=== PATIENT | female | born 1940 | race Asian ===

== ENCOUNTER 2016-08-18 12:27 | Emergency (ER) | payer OTHER ==
[~2016-08-18] VITALS: Ht 160 cm; Wt 80.9 kg
[~2016-08-18 12:27] MED LIST: AMLO-511 PO; ATOR10TA84 PO; LOSARTAN PO; METF500T4 PO; PRAV40 PO
[2016-08-18] MEDS ORDERED: HYDR25TA PO (12:49)
[2016-08-18] MEDS ORDERED: LEVO88TA4 PO (12:49)
[2016-08-18] MEDS ORDERED: LOSA50TA37 PO (14:10)
[2016-08-18] MEDS ORDERED: PRAV20TA4 PO (14:10)
[2016-08-18] MEDS ORDERED: ONDANSETRON HCL 4 MG/2 ML VIAL IVP ONE (14:15)
[2016-08-18] MEDS ORDERED: SODIUM CHLORIDE 0.9% 1,000 ML IV ONE (14:15)
[2016-08-18 14:39] LABS: BASOPHILS % (AUTO) 0.2 % (0.0-2.0); EOSINOPHILS % (AUTO) 0.8 % (1.0-6.0); HEMATOCRIT 43.7 % (36-46); HEMOGLOBIN 14.6 g/dL (12.0-16.0); LYMPHOCYTES # (AUTO) 1.5 K/uL (1.0-4.8); LYMPHOCYTES % (AUTO) 23.2 % (22.0-44.0); MEAN CORPUSCULAR HEMOGLOBIN 30.6 pg (26.0-34.0); MEAN CORPUSCULAR HGB CONC 33.4 G/dL (31.0-37.0); MEAN CORPUSCULAR VOLUME 92 fL (80-100); MONOCYTES # (AUTO) 0.4 K/uL (0.1-1.0); MONOCYTES % (AUTO) 6.7 % (2.0-9.0); NEUTROPHILS # (AUTO) 4.5 K/uL (1.8-7.7); NEUTROPHILS % (AUTO) 69.1 % (40.0-70.0); PLATELET COUNT (AUTO) 217 K/uL (150-450); RED BLOOD CELL COUNT(AUTO) 4.78 MIL/uL (4.00-5.20); RED CELL DISTRIBUTION WIDTH 12.6 % (11.5-14.5); WHITE BLOOD COUNT (AUTO) 6.5 K/uL (4.5-11.0)
[2016-08-18 14:50] LABS: ANION GAP 12 mmol/L (8-16); CALCIUM, TOTAL 9.4 mg/dL (8.8-10.5); CARBON DIOXIDE 27 mmol/L (22-29); CHLORIDE 98 mmol/L (98-107); GLOMERULAR FILTR. RATE CALC 54 mL/min (>60); SODIUM SERUM 137 mmol/L (136-145); UREA NITROGEN, BLOOD 15 mg/dL (7-18)
[2016-08-18 15:15] LABS: ALANINE AMINOTRANSFERASE 33 U/L (12-78); ALBUMIN 4.2 g/dL (3.4-5.0); ASPARTATE AMINOTRANSFERASE 25 U/L (15-37); BILIRUBIN,TOTAL 0.7 mg/dL (0.1-1.0); CREATINE KINASE, TOTAL 79 U/L (26-192)
[2016-08-18 15:23] LABS: CREATINE KINASE MB < 0.5 ng/mL (0-5)
[2016-08-18 15:32] LABS: B-TYPE NATRIURETIC PEPTIDE 17 pg/mL (0-100)
[2016-08-18 16:02] LABS: ADD UA MICROSCOPIC YES; APPEARANCE,URINE CLEAR (CLEAR); GLUCOSE, URINE (UA) NEGATIVE (NEGATIVE); KETONES,URINE NEGATIVE (NEGATIVE); LEUKOCYTE ESTERASE ,URINE NEGATIVE (NEGATIVE); OCCULT BLOOD,URINE MODERATE (NEGATIVE); PROTEIN,URINE NEGATIVE (NEGATIVE)
[2016-08-18 16:20] LABS: SQUAMOUS EPITHELIAL CELL,UR Few /LPF (None Seen); TRANSITIONAL EPI CELLS,URINE Few /LPF (None Seen)
[2016-08-18 16:21] LABS: WBC,URINE 0-2 /HPF (0-5)
[2016-08-18 17:00] VITALS: BP 145/83
== END 2016-08-18 17:24 | disposition home or self-care (01) ==
LOC: EMS 12:28
DX: R11.2 Nausea with vomiting, unspecified (principal); I10 Essential (primary) hypertension; R42 Dizziness and giddiness; E11.9 Type 2 diabetes mellitus without complications; E78.00 Pure hypercholesterolemia, unspecified
CPT/HCPCS: 36415; 71010; 80053; 81001; 82550; 82553; 83690; 83880; 84484; 85025; 93005; 96361; 96374; 99285; J2405; J7030

== ENCOUNTER 2017-01-18 18:51 | Emergency (ER) | payer OTHER ==
[~2017-01-18] VITALS: Ht 160 cm; Wt 72.7 kg
[~2017-01-18 18:51] MED LIST changes: -ATOR10TA84 PO; +HYDR25TA PO; +LEVO88TA4 PO; +LOSA50TA37 PO; -LOSARTAN PO; +PRAV20TA4 PO; -PRAV40 PO
[2017-01-18 19:07] LABS: GLUCOSE,POINT OF CARE 148 MG/DL (70-110)
[2017-01-18] MEDS ORDERED: KETOROLAC TROMETHAMINE 30 MG/ML VIAL IM ONE (19:30)
[2017-01-18] MEDS ORDERED: METHOCARBAMOL 500 MG TABLET PO ONE (19:30)
[2017-01-18 19:32] VITALS: BP 132/85
== END 2017-01-18 20:38 | disposition home or self-care (01) ==
LOC: EMS 18:52
DX: S39.012A Strain of muscle, fascia and tendon of lower back, initial encounter (principal); E11.9 Type 2 diabetes mellitus without complications; E78.00 Pure hypercholesterolemia, unspecified; I10 Essential (primary) hypertension; I70.0 Atherosclerosis of aorta; X50.1XXA Overexertion from prolonged static or awkward postures, initial encounter; Y93.89 Activity, other specified; Y92.89 Other specified places as the place of occurrence of the external cause; Y99.8 Other external cause status
CPT/HCPCS: 71010; 72100; 82962; 96372; 99284; J1885

== ENCOUNTER 2017-02-22 23:59 | Emergency (ER) | payer OTHER ==
[~2017-02-22] VITALS: Ht 157.5 cm; Wt 63.6 kg
[~2017-02-22 23:59] MED LIST changes: -AMLO-511 PO
[2017-02-23] MEDS ORDERED: HYDR25TA PO (00:07)
[2017-02-23] MEDS ORDERED: METO25 PO (00:07)
[2017-02-23 00:13] LABS: GLUCOSE,POINT OF CARE 126 MG/DL (70-110)
[2017-02-23 01:02] LABS: BASOPHILS % (AUTO) 0.3 % (0.0-2.0); EOSINOPHILS % (AUTO) 1.8 % (1.0-6.0); HEMATOCRIT 37.8 % (36-46); HEMOGLOBIN 12.9 g/dL (12.0-16.0); LYMPHOCYTES # (AUTO) 2.4 K/uL (1.0-4.8); LYMPHOCYTES % (AUTO) 35.5 % (22.0-44.0); MEAN CORPUSCULAR HEMOGLOBIN 31.4 pg (26.0-34.0); MEAN CORPUSCULAR HGB CONC 34.2 G/dL (31.0-37.0); MEAN CORPUSCULAR VOLUME 92 fL (80-100); MONOCYTES # (AUTO) 0.6 K/uL (0.1-1.0); MONOCYTES % (AUTO) 8.4 % (2.0-9.0); NEUTROPHILS # (AUTO) 3.6 K/uL (1.8-7.7); PLATELET COUNT (AUTO) 196 K/uL (150-450); RED BLOOD CELL COUNT(AUTO) 4.12 MIL/uL (4.00-5.20); RED CELL DISTRIBUTION WIDTH 12.7 % (11.5-14.5); WHITE BLOOD COUNT (AUTO) 6.7 K/uL (4.5-11.0)
[2017-02-23 01:13] LABS: CALCIUM, TOTAL 9.3 mg/dL (8.8-10.5); CREATININE 1.25 mg/dL (0.60-1.30); POTASSIUM 4.2 mmol/L (3.5-5.1)
[2017-02-23 01:15] VITALS: BP 124/71
[2017-02-23 01:21] LABS: ALBUMIN 3.7 g/dL (3.4-5.0); BILIRUBIN,TOTAL 0.4 mg/dL (0.1-1.0); TOTAL PROTEIN, SERUM 7.4 g/dL (6.4-8.2)
== END 2017-02-23 01:57 | disposition home or self-care (01) ==
LOC: EMS 02-23 00:01
DX: R00.2 Palpitations (principal); F41.9 Anxiety disorder, unspecified; R20.0 Anesthesia of skin; R07.9 Chest pain, unspecified; E11.9 Type 2 diabetes mellitus without complications; E78.00 Pure hypercholesterolemia, unspecified; I10 Essential (primary) hypertension
CPT/HCPCS: 82962; 93005; 99285

== ENCOUNTER 2017-11-24 19:06 | Emergency (ER) | payer MEDICARE, OTHER ==
[~2017-11-24] VITALS: Ht 160 cm; Wt 81.8 kg
[~2017-11-24 19:06] MED LIST changes: +LOSA50TA25 PO; -LOSA50TA37 PO; +METF-444 PO; -METF500T4 PO; +METO25 PO
[2017-11-24 19:19] LABS: GLUCOSE,POINT OF CARE 149 MG/DL (70-110)
[2017-11-24] MEDS ORDERED: TraMADol HCL 50 MG TABLET PO ONE (20:45)
[2017-11-24 22:16] VITALS: BP 135/85
== END 2017-11-24 22:19 | disposition home or self-care (01) ==
LOC: EMS 19:08
DX: S46.811A Strain of other muscles, fascia and tendons at shoulder and upper arm level, right arm, initial encounter (principal); S13.4XXA Sprain of ligaments of cervical spine, initial encounter; E11.9 Type 2 diabetes mellitus without complications; E78.00 Pure hypercholesterolemia, unspecified; I10 Essential (primary) hypertension; X58.XXXA Exposure to other specified factors, initial encounter; Y93.89 Activity, other specified; Y92.89 Other specified places as the place of occurrence of the external cause; Y99.8 Other external cause status
CPT/HCPCS: 72070; 99284

== ENCOUNTER 2018-03-15 09:49 | Emergency (ER) | payer MEDICARE, OTHER ==
[~2018-03-15] VITALS: Ht 157.5 cm; Wt 77.0 kg
[~2018-03-15 09:49] MED LIST changes: -LOSA50TA25 PO; +LOSA50TA64 PO
[2018-03-15 10:05] LABS: GLUCOSE,POINT OF CARE 148 MG/DL (70-110)
[2018-03-15] MEDS ORDERED: ALEN70TA10 PO (11:13)
[2018-03-15] MEDS ORDERED: ASPI-556 PO (11:13)
[2018-03-15 11:57] LABS: BASOPHILS % (AUTO) 0.9 % (0.0-2.0); EOSINOPHILS % (AUTO) 1.1 % (1.0-6.0); HEMATOCRIT 42.1 % (36-46); HEMOGLOBIN 14.5 g/dL (12.0-16.0); LYMPHOCYTES # (AUTO) 1.3 K/uL (1.0-4.8); LYMPHOCYTES % (AUTO) 25.1 % (22.0-44.0); MEAN CORPUSCULAR HEMOGLOBIN 31.6 pg (26.0-34.0); MEAN CORPUSCULAR HGB CONC 34.5 G/dL (31.0-37.0); MEAN CORPUSCULAR VOLUME 92 fL (80-100); MONOCYTES # (AUTO) 0.4 K/uL (0.1-1.0); MONOCYTES % (AUTO) 7.7 % (2.0-9.0); NEUTROPHILS # (AUTO) 3.4 K/uL (1.8-7.7); NEUTROPHILS % (AUTO) 65.2 % (40.0-70.0); PLATELET COUNT (AUTO) 221 K/uL (150-450); RED CELL DISTRIBUTION WIDTH 12.9 % (11.5-14.5)
[2018-03-15] MEDS ORDERED: ONDANSETRON HCL 4 MG/2 ML VIAL IVP ONE (12:00)
[2018-03-15] MEDS ORDERED: SODIUM CHLORIDE 0.9% 1,000 ML IV ONE (12:00)
[2018-03-15] MEDS ORDERED: PANTOPRAZOLE SODIUM 40 MG/VIAL IVP ONE (12:00)
[2018-03-15 12:08] LABS: PROTHROMBIN TIME 10.3 SEC (9.4-11.6)
[2018-03-15 12:10] LABS: CALCIUM, TOTAL 9.6 mg/dL (8.8-10.5); CREATININE 1.15 mg/dL (0.60-1.30); POTASSIUM 3.2 mmol/L (3.5-5.1)
[2018-03-15 12:33] LABS: APPEARANCE,URINE CLEAR (CLEAR); BILIRUBIN,URINE NEGATIVE (NEGATIVE); GLUCOSE, URINE (UA) NEGATIVE (NEGATIVE); KETONES,URINE NEGATIVE (NEGATIVE); LEUKOCYTE ESTERASE ,URINE NEGATIVE (NEGATIVE); NITRATE,URINE NEGATIVE (NEGATIVE); OCCULT BLOOD,URINE SMALL (NEGATIVE); PROTEIN,URINE NEGATIVE (NEGATIVE); UROBILINOGEN,URINE 0.2 mg/dL (<=1.0)
[2018-03-15 12:42] LABS: ALBUMIN 3.7 g/dL (3.4-5.0); BILIRUBIN,TOTAL 0.7 mg/dL (0.1-1.0); TOTAL PROTEIN, SERUM 7.7 g/dL (6.4-8.2)
[2018-03-15] MEDS ORDERED: POTASSIUM CHLORIDE 20 MEQ ER TABLET PO ONE (13:30)
[2018-03-15] MEDS ORDERED: IOVERSOL 350 MG/ML 100 ML VIAL ONE (13:47)
[2018-03-15 15:17] LABS: BACTERIA,URINE None Seen /HPF (None Seen); RBC,URINE 0-2 /HPF (0-2); WBC,URINE 0-2 /HPF (0-5)
[2018-03-15 15:18] LABS: SQUAMOUS EPITHELIAL CELL,UR Few /LPF (None Seen)
[2018-03-15 15:20] VITALS: BP 142/84
== END 2018-03-15 15:37 | disposition home or self-care (01) ==
LOC: EMS 09:50
DX: K59.00 Constipation, unspecified (principal); R11.2 Nausea with vomiting, unspecified; E87.6 Hypokalemia; R42 Dizziness and giddiness; E11.9 Type 2 diabetes mellitus without complications; E78.00 Pure hypercholesterolemia, unspecified; I10 Essential (primary) hypertension; Z79.82 Long term (current) use of aspirin
CPT/HCPCS: 36415; 71045; 74176; 80053; 81001; 81003; 82550; 82962; 83690; 83880; 84484; 85025; 85610; 85730; 93005; 96361; 96374; 96375; 99285; C9113; J2405; J7030

== ENCOUNTER 2019-04-24 15:56 | Inpatient (IN) | payer MEDICARE, OTHER ==
[~2019-04-24] VITALS: Ht 154.9 cm; Wt 77.0 kg
[~2019-04-24 15:56] MED LIST changes: +ALEN70TA10 PO; +ASPI-556 PO; +HYDR-1475 PO; -HYDR25TA PO; +LOSA-88 PO; -LOSA50TA64 PO
[2019-04-24] MEDS ORDERED: FURO20 PO (16:32)
[2019-04-24] MEDS ORDERED: GUAI100S42 PO (16:32)
[2019-04-24] MEDS ORDERED: ACET-66 PO (16:32)
[2019-04-24] MEDS ORDERED: AMLO5TAB9 PO (16:32)
[2019-04-24] MEDS ORDERED: FLUT16H NASAL (16:32)
[2019-04-24] MEDS ORDERED: ALBU8HFA IH (16:32)
[2019-04-24] MEDS ORDERED: LORA10TA7 PO (16:32)
[2019-04-24] MEDS ORDERED: LOSA-88 PO (16:32)
[2019-04-24] MEDS ORDERED: APIX5TAB PO (16:32)
[2019-04-24] MEDS ORDERED: GABA-529 PO (16:32)
[2019-04-24] MEDS ORDERED: PRED20 PO (16:32)
[2019-04-24 16:34] LABS: GLUCOSE,POINT OF CARE 154 MG/DL (70-110)
[2019-04-24 16:45] LABS: BASOPHILS % (AUTO) 0.7 % (0.0-2.0); EOSINOPHILS % (AUTO) 1.3 % (1.0-6.0); HEMATOCRIT 41.5 % (36-46); HEMOGLOBIN 13.9 g/dL (12.0-16.0); LYMPHOCYTES # (AUTO) 1.3 K/uL (1.0-4.8); LYMPHOCYTES % (AUTO) 34.3 % (22.0-44.0); MEAN CORPUSCULAR HEMOGLOBIN 30.8 pg (26.0-34.0); MEAN CORPUSCULAR HGB CONC 33.5 G/dL (31.0-37.0); MEAN CORPUSCULAR VOLUME 92 fL (80-100); MONOCYTES # (AUTO) 0.6 K/uL (0.1-1.0); MONOCYTES % (AUTO) 17.1 % (2.0-9.0); NEUTROPHILS # (AUTO) 1.7 K/uL (1.8-7.7); NEUTROPHILS % (AUTO) 46.6 % (40.0-70.0); PLATELET COUNT (AUTO) 196 K/uL (150-450); RED CELL DISTRIBUTION WIDTH 13.3 % (11.5-14.5)
[2019-04-24 17:03] LABS: PROTHROMBIN TIME 10.1 SEC (9.4-11.6)
[2019-04-24 17:28] LABS: CALCIUM, TOTAL 8.9 mg/dL (8.8-10.5); CREATININE 1.07 mg/dL (0.60-1.30); POTASSIUM 3.2 mmol/L (3.5-5.1)
[2019-04-24 17:33] LABS: ALBUMIN 3.8 g/dL (3.4-5.0); BILIRUBIN,TOTAL 0.2 mg/dL (0.1-1.0); TOTAL PROTEIN, SERUM 7.8 g/dL (6.4-8.2)
[2019-04-24 17:35] LABS: LACTIC ACID 1.6 mmol/L (0.4-2.0)
[2019-04-24] MEDS ORDERED: GuaiFENesin/D-METHORPHAN [SUGAR-FREE] 200-20MG/10 ML SYRUP UDCUP PO ONE (18:00)
[2019-04-24] MEDS ORDERED: ONDANSETRON HCL 4 MG/2 ML VIAL IVP PRN ×2 (18:00→20:30)
[2019-04-24] MEDS ORDERED: 0.9% SODIUM CHLORIDE 10 ML SYRINGE IVP PRN ×2 (18:00→20:30)
[2019-04-24] MEDS ORDERED: IPRATROPIUM BROMIDE 0.5 MG/2.5 ML NEB SOLUTION NEB PRN ×2 (18:00→20:30)
[2019-04-24] MEDS ORDERED: ALBUTEROL SULFATE 2.5 MG/0.5 ML NEB SOLUTION NEB PRN ×2 (18:00→20:30)
[2019-04-24] MEDS ORDERED: POTASSIUM CHLORIDE 10% 40 MEQ/30 ML LIQUID UDCUP PO ONE (18:00)
[2019-04-24] MEDS ORDERED: ACETAMINOPHEN 325 MG TABLET PO PRN ×2 (18:00→20:30)
[2019-04-24 19:12] LABS: INFLUENZA TYPE A NEGATIVE FOR TYPE A (NEGATIVE); INFLUENZA TYPE B NEGATIVE FOR TYPE B (NEGATIVE)
[2019-04-24] MEDS ORDERED: MAGNESIUM SULFATE 4 GM/WATER 100 ML IV PRN (20:30)
[2019-04-24] MEDS ORDERED: POTASSIUM CHLORIDE 20 MEQ ER TABLET PO PRN (20:30)
[2019-04-24] MEDS ORDERED: ALBUTEROL SULFATE HFA 90 MCG/PUFF 8 GM INHALER IH PRN (20:30)
[2019-04-24] MEDS ORDERED: ZOLPIDEM TARTRATE 5 MG TABLET PO PRN (20:30)
[2019-04-24] MEDS ORDERED: MAGNESIUM OXIDE 400 MG TABLET PO PRN (20:30)
[2019-04-24] MEDS ORDERED: POTASSIUM CHL 10 MEQ/WATER 50 ML IV PRN (20:30)
[2019-04-24] MEDS ORDERED: MAGNESIUM SULFATE 2 GM/WATER 50 ML IV PRN (20:30)
[2019-04-24] MEDS: GABAPENTIN 100 MG CAPSULE PO SCH (21:00)
[2019-04-24 21:02] VITALS: BP 147/72
[2019-04-24] MEDS: PRAVASTATIN SODIUM 20 MG TABLET PO SCH (22:52)
[2019-04-24] MEDS: APIXABAN 5 MG TABLET PO SCH (22:52)
[2019-04-24 23:42] VITALS: BP 126/79
[2019-04-25] MEDS: ALBUTEROL SULFATE 2.5 MG/0.5 ML NEB SOLUTION NEB SCH ×4 (02:00→19:14)
[2019-04-25] MEDS: IPRATROPIUM BROMIDE 0.5 MG/2.5 ML NEB SOLUTION NEB SCH ×4 (02:00→19:14)
[2019-04-25] MEDS ORDERED: PNEUMOCOCCAL VACCINE POLYVALENT 0.5 ML VIAL [PPSV23] IM ONE (03:30)
[2019-04-25 05:01] VITALS: BP 123/73
[2019-04-25] MEDS: LEVOTHYROXINE SODIUM 88 MCG TABLET PO SCH (06:01)
[2019-04-25 06:19] LABS: BASOPHILS % (AUTO) 0.3 % (0.0-2.0); EOSINOPHILS % (AUTO) 0.4 % (1.0-6.0); HEMOGLOBIN 12.3 g/dL (12.0-16.0); LYMPHOCYTES # (AUTO) 1.1 K/uL (1.0-4.8); LYMPHOCYTES % (AUTO) 35.4 % (22.0-44.0); MEAN CORPUSCULAR HEMOGLOBIN 31.5 pg (26.0-34.0); MEAN CORPUSCULAR HGB CONC 34.2 G/dL (31.0-37.0); MEAN CORPUSCULAR VOLUME 92 fL (80-100); MONOCYTES # (AUTO) 0.4 K/uL (0.1-1.0); MONOCYTES % (AUTO) 11.4 % (2.0-9.0); NEUTROPHILS # (AUTO) 1.7 K/uL (1.8-7.7); NEUTROPHILS % (AUTO) 52.5 % (40.0-70.0); PLATELET COUNT (AUTO) 182 K/uL (150-450); RED BLOOD CELL COUNT(AUTO) 3.91 MIL/uL (4.00-5.20); RED CELL DISTRIBUTION WIDTH 13.2 % (11.5-14.5)
[2019-04-25 06:23] LABS: HEMOGLOBIN A1C 6.4 % (4.5-6.2)
[2019-04-25 06:55] LABS: ANION GAP 10 mmol/L (8-16); CALCIUM, TOTAL 8.8 mg/dL (8.8-10.5); CARBON DIOXIDE 26 mmol/L (22-29); CHLORIDE 106 mmol/L (98-107); CREATININE 0.85 mg/dL (0.60-1.30); GLUCOSE,RANDOM 139 mg/dL (70-110); POTASSIUM 3.5 mmol/L (3.5-5.1); SODIUM SERUM 142 mmol/L (136-145); THYROID STIMULATING HORMONE 0.32 uIU/mL (0.36-3.74); UREA NITROGEN, BLOOD 11 mg/dL (7-18)
[2019-04-25 06:58] LABS: GLOMERULAR FILTR. RATE CALC > 60 mL/min (>60)
[2019-04-25 07:24] VITALS: BP 131/80
[2019-04-25] MEDS: GABAPENTIN 100 MG CAPSULE PO SCH ×2 (08:13→20:14)
[2019-04-25] MEDS: LOSARTAN POTASSIUM 50 MG TABLET PO SCH (08:13)
[2019-04-25] MEDS: AmLODIPine BESYLATE 5 MG TABLET PO SCH (08:14)
[2019-04-25] MEDS: FUROSEMIDE 20 MG TABLET PO SCH (08:14)
[2019-04-25] MEDS: PANTOPRAZOLE SODIUM 40 MG DR TABLET PO SCH (08:14)
[2019-04-25] MEDS: APIXABAN 5 MG TABLET PO SCH ×2 (08:16→20:14)
[2019-04-25] MEDS: FLUTICASONE PROPIONATE 50 MCG/SPRAY 16 GM NASAL SPRAY NASAL SCH (08:16)
[2019-04-25] MEDS: LORATADINE 10 MG TABLET PO SCH (08:17)
[2019-04-25 11:04] VITALS: BP 138/75
[2019-04-25 15:18] VITALS: BP 138/77
[2019-04-25] MEDS: PRAVASTATIN SODIUM 20 MG TABLET PO SCH (20:14)
[2019-04-25 20:26] VITALS: BP 109/60
[2019-04-25 23:44] VITALS: BP 116/72
[2019-04-26] MEDS ORDERED: BENZONATATE 100 MG CAPSULE PO PRN
[2019-04-26] MEDS: IPRATROPIUM BROMIDE 0.5 MG/2.5 ML NEB SOLUTION NEB SCH ×4 (02:40→20:32)
[2019-04-26] MEDS: ALBUTEROL SULFATE 2.5 MG/0.5 ML NEB SOLUTION NEB SCH ×4 (02:40→20:32)
[2019-04-26 03:56] VITALS: BP 115/68
[2019-04-26] MEDS: LEVOTHYROXINE SODIUM 88 MCG TABLET PO SCH (05:38)
[2019-04-26] MEDS ORDERED: ALENDRONATE SODIUM 70 MG TABLET PO SCH (06:30)
[2019-04-26] MEDS: APIXABAN 5 MG TABLET PO SCH ×2 (08:03→20:20)
[2019-04-26] MEDS: FLUTICASONE PROPIONATE 50 MCG/SPRAY 16 GM NASAL SPRAY NASAL SCH (08:03)
[2019-04-26] MEDS: GABAPENTIN 100 MG CAPSULE PO SCH ×2 (08:03→20:20)
[2019-04-26] MEDS: AmLODIPine BESYLATE 5 MG TABLET PO SCH (08:03)
[2019-04-26] MEDS: PANTOPRAZOLE SODIUM 40 MG DR TABLET PO SCH (08:03)
[2019-04-26] MEDS: LOSARTAN POTASSIUM 50 MG TABLET PO SCH (08:03)
[2019-04-26] MEDS: FUROSEMIDE 20 MG TABLET PO SCH (08:03)
[2019-04-26] MEDS: LORATADINE 10 MG TABLET PO SCH (08:04)
[2019-04-26 08:10] VITALS: BP 125/61
[2019-04-26 08:45] LABS: BASOPHILS % (AUTO) 0.3 % (0.0-2.0); EOSINOPHILS % (AUTO) 1.6 % (1.0-6.0); HEMATOCRIT 38.8 % (36-46); LYMPHOCYTES # (AUTO) 2.6 K/uL (1.0-4.8); LYMPHOCYTES % (AUTO) 41.7 % (22.0-44.0); MEAN CORPUSCULAR HEMOGLOBIN 30.8 pg (26.0-34.0); MEAN CORPUSCULAR HGB CONC 33.4 G/dL (31.0-37.0); MEAN CORPUSCULAR VOLUME 92 fL (80-100); MONOCYTES # (AUTO) 0.5 K/uL (0.1-1.0); MONOCYTES % (AUTO) 8.2 % (2.0-9.0); NEUTROPHILS % (AUTO) 48.2 % (40.0-70.0); RED CELL DISTRIBUTION WIDTH 13.3 % (11.5-14.5)
[2019-04-26 09:26] LABS: PLATELET COUNT (AUTO) 172 K/uL (150-450)
[2019-04-26 12:24] LABS: ANION GAP 6 mmol/L (8-16); CALCIUM, TOTAL 8.9 mg/dL (8.8-10.5); CARBON DIOXIDE 31 mmol/L (22-29); CHLORIDE 106 mmol/L (98-107); CREATININE 0.72 mg/dL (0.60-1.30); GLUCOSE,RANDOM 121 mg/dL (70-110); POTASSIUM 3.6 mmol/L (3.5-5.1); SODIUM SERUM 143 mmol/L (136-145); UREA NITROGEN, BLOOD 13 mg/dL (7-18)
[2019-04-26 12:25] LABS: GLOMERULAR FILTR. RATE CALC > 60 mL/min (>60)
[2019-04-26 13:12] VITALS: BP 118/62
[2019-04-26 16:00] VITALS: BP 136/80
[2019-04-26] MEDS: PRAVASTATIN SODIUM 20 MG TABLET PO SCH (20:20)
[2019-04-26 20:29] VITALS: BP 133/79
[2019-04-27 00:35] VITALS: BP 134/71
[2019-04-27] MEDS: IPRATROPIUM BROMIDE 0.5 MG/2.5 ML NEB SOLUTION NEB SCH ×2 (02:09→08:54)
[2019-04-27] MEDS: ALBUTEROL SULFATE 2.5 MG/0.5 ML NEB SOLUTION NEB SCH ×2 (02:09→08:54)
[2019-04-27 05:44] VITALS: BP 133/69
[2019-04-27] MEDS: LEVOTHYROXINE SODIUM 88 MCG TABLET PO SCH (06:16)
[2019-04-27 06:40] LABS: BASOPHILS % (AUTO) 1.2 % (0.0-2.0); EOSINOPHILS % (AUTO) 2.4 % (1.0-6.0); HEMOGLOBIN 12.2 g/dL (12.0-16.0); LYMPHOCYTES # (AUTO) 2.2 K/uL (1.0-4.8); LYMPHOCYTES % (AUTO) 38.8 % (22.0-44.0); MEAN CORPUSCULAR HEMOGLOBIN 31.1 pg (26.0-34.0); MEAN CORPUSCULAR HGB CONC 33.9 G/dL (31.0-37.0); MEAN CORPUSCULAR VOLUME 92 fL (80-100); MONOCYTES # (AUTO) 0.5 K/uL (0.1-1.0); NEUTROPHILS # (AUTO) 2.8 K/uL (1.8-7.7); NEUTROPHILS % (AUTO) 49.6 % (40.0-70.0); PLATELET COUNT (AUTO) 184 K/uL (150-450); RED BLOOD CELL COUNT(AUTO) 3.92 MIL/uL (4.00-5.20); RED CELL DISTRIBUTION WIDTH 13.3 % (11.5-14.5)
[2019-04-27 06:53] LABS: CALCIUM, TOTAL 8.7 mg/dL (8.8-10.5); MAGNESIUM 1.8 mg/dL (1.80-2.40); POTASSIUM 3.2 mmol/L (3.5-5.1)
[2019-04-27 08:02] VITALS: BP 142/88
[2019-04-27] MEDS: FLUTICASONE PROPIONATE 50 MCG/SPRAY 16 GM NASAL SPRAY NASAL SCH (08:09)
[2019-04-27] MEDS: FUROSEMIDE 20 MG TABLET PO SCH (08:11)
[2019-04-27] MEDS: PANTOPRAZOLE SODIUM 40 MG DR TABLET PO SCH (08:11)
[2019-04-27] MEDS: LORATADINE 10 MG TABLET PO SCH (08:12)
[2019-04-27] MEDS: GABAPENTIN 100 MG CAPSULE PO SCH (08:12)
[2019-04-27] MEDS: APIXABAN 5 MG TABLET PO SCH (08:12)
[2019-04-27] MEDS: AmLODIPine BESYLATE 5 MG TABLET PO SCH (08:15)
[2019-04-27] MEDS ORDERED: METOPROLOL TARTRATE 25 MG TABLET PO SCH (10:00)
[2019-04-27 10:33] LABS: FREE T4 (FREE THYROXINE) 1.25 ng/dL (0.76-1.46)
[2019-04-27 11:58] VITALS: BP 140/88
[2019-04-27] MEDS: LOSARTAN POTASSIUM 50 MG TABLET PO SCH (12:00)
[2019-04-27] MEDS ORDERED: KDUR10 PO (13:10)
[2019-04-27] MEDS ORDERED: LEVO50 PO (13:11)
== END 2019-04-27 14:20 | disposition home or self-care (01) | DRG 192 ==
LOC: EMS 15:58 → 5S 18:36
PROVIDERS: ADMIT Internal Medicine; ATTEND Internal Medicine
DX: J44.1 Chronic obstructive pulmonary disease with (acute) exacerbation (principal); I10 Essential (primary) hypertension; E11.9 Type 2 diabetes mellitus without complications; E78.00 Pure hypercholesterolemia, unspecified; E03.9 Hypothyroidism, unspecified; E78.5 Hyperlipidemia, unspecified; M81.0 Age-related osteoporosis without current pathological fracture; E87.6 Hypokalemia; Z90.49 Acquired absence of other specified parts of digestive tract; Z83.3 Family history of diabetes mellitus; Z82.49 Family history of ischemic heart disease and other diseases of the circulatory system
CPT/HCPCS: 83036; 83605; 83735; 84132; 84439; 84443; 87040; 87804; 93005; 93306; 94640

== ENCOUNTER 2021-06-23 23:07 | Emergency (ER) | payer MEDICARE, OTHER ==
[~2021-06-23] VITALS: Ht 160 cm; Wt 83.2 kg
[~2021-06-23 23:07] MED LIST changes: +ACET-3385 PO; +ALBU8HFA IH; -ALEN70TA10 PO; +ALEN70TA65 PO; +AMLO-257 PO; +APIX5TAB PO; -ASPI-556 PO; +FLUT16H NASAL; +FURO20 PO; +GABA-1216 PO; +GUAI100S59 PO; -HYDR-1475 PO; +LORA10TA7 PO; +LOSA-382 PO; -LOSA-88 PO; -METO25 PO; +POTA8TAB71 PO
[2021-06-23 23:13] VITALS: BP 171/75
[2021-06-23 23:26] LABS: GLUCOSE,POINT OF CARE 154 MG/DL (70-110)
[2021-06-24] MEDS ORDERED: HYDROCODONE/ACETAMINOPHEN 5-325 MG TABLET PO ONE (00:15)
== END 2021-06-24 00:48 | disposition home or self-care (01) ==
LOC: EMS 23:10
DX: K08.89 Other specified disorders of teeth and supporting structures (principal); M19.90 Unspecified osteoarthritis, unspecified site; E11.9 Type 2 diabetes mellitus without complications; E78.00 Pure hypercholesterolemia, unspecified; I10 Essential (primary) hypertension
CPT/HCPCS: 82962; 99283